=== PATIENT | male | born 1945 | race Caucasian/White ===

== ENCOUNTER 2016-09-10 19:30 | Inpatient (IN) | payer MEDICARE, MEDICAID ==
[~2016-09-10] VITALS: Ht 181.6 cm; Wt 70.5 kg
[2016-09-10] MEDS ORDERED: DUONEB INH ONE ×2 (20:47)
[2016-09-10] MEDS ORDERED: METHYLPRED SOD SUCC 125 MG/2 ML VIAL ONE (22:44)
[2016-09-10] MEDS ORDERED: TUSSIONEX SUSP UDC ONE (22:50)
[2016-09-10] MEDS ORDERED: SALINE FLUSH 10 ML FLUSH PRN (23:15)
[2016-09-10] MEDS: DUONEB INH SCH (23:15)
[2016-09-11] VITALS (11 sets, daily range): BP systolic 126–146; RESP 16–20; TEMP 97.4–98.3; Ht 181.6 cm; Wt 70.5 kg
[2016-09-11] MEDS: CEFTRIAXONE 1 GM in SODIUM CHLORIDE 0.9% 50 ML IV SCH ×2 (00:38→09:21)
[2016-09-11] MEDS: Carvedilol 6.25 MG TAB PO SCH ×3 (00:39→20:24)
[2016-09-11] MEDS: SODIUM CHLORIDE 0.9% FLUSH BAG 500 ML IV SCH (00:39)
[2016-09-11] MEDS: GABAPENTIN 600 MG TAB PO SCH ×4 (00:39→20:25)
[2016-09-11] MEDS: METHYLPRED SOD SUCC 40 MG VIAL IV SCH ×4 (06:19→23:17)
[2016-09-11] MEDS: DUONEB INH SCH ×4 (06:32→22:07)
[2016-09-11] MEDS: Furosemide 20 MG/2 ML VIAL IV SCH ×2 (09:20→16:46)
[2016-09-11] MEDS: SALINE FLUSH 10 ML FLUSH SCH ×2 (09:21→20:24)
[2016-09-11] MEDS: PAROXETINE HCL 10 MG TAB PO SCH (09:21)
[2016-09-11] MEDS: LORATADINE 10 MG TAB PO SCH (09:21)
[2016-09-11] MEDS: CLOPIDOGREL 75 MG TAB PO SCH (09:21)
[2016-09-11] MEDS: ARIPiprazole 5 MG TABLET PO SCH (09:22)
[2016-09-11] MEDS ORDERED: GLUCAGON 1 MG VIAL IM PRN (11:50)
[2016-09-11] MEDS ORDERED: DEXTROSE 50% SYRINGE 50 ML IV PRN (11:50)
[2016-09-11] MEDS ORDERED: MISSING DOSE XX ONE (16:10)
[2016-09-11] MEDS: Atorvastatin 40 MG TAB PO SCH (20:24)
[2016-09-12] VITALS (8 sets, daily range): BP systolic 122–148; RESP 18–20; TEMP 97.6–98.8
[2016-09-12] MEDS: METHYLPRED SOD SUCC 40 MG VIAL IV SCH ×4 (05:26→23:08)
[2016-09-12] MEDS: SODIUM CHLORIDE 0.9% FLUSH BAG 500 ML IV SCH (05:26)
[2016-09-12] MEDS: DUONEB INH SCH ×4 (07:27→22:42)
[2016-09-12] MEDS: SALINE FLUSH 10 ML FLUSH SCH ×2 (08:18→20:14)
[2016-09-12] MEDS: ARIPiprazole 5 MG TABLET PO SCH (08:19)
[2016-09-12] MEDS: CLOPIDOGREL 75 MG TAB PO SCH (08:19)
[2016-09-12] MEDS: GABAPENTIN 600 MG TAB PO SCH ×3 (08:19→20:15)
[2016-09-12] MEDS: PAROXETINE HCL 10 MG TAB PO SCH (08:19)
[2016-09-12] MEDS: CEFTRIAXONE 1 GM in SODIUM CHLORIDE 0.9% 50 ML IV SCH (08:19)
[2016-09-12] MEDS: LORATADINE 10 MG TAB PO SCH (08:19)
[2016-09-12] MEDS ORDERED: MISSING DOSE XX ONE ×2 (08:30→09:15)
[2016-09-12] MEDS: Furosemide 20 MG/2 ML VIAL IV SCH ×2 (09:57→17:13)
[2016-09-12] MEDS: METOPROLOL TART 25 MG TAB PO SCH ×2 (09:57→20:15)
[2016-09-12] MEDS: Atorvastatin 40 MG TAB PO SCH (20:15)
[2016-09-13 02:31] VITALS: BP_SYST 131; RESP 20; TEMP 97.5
[2016-09-13] MEDS: SODIUM CHLORIDE 0.9% FLUSH BAG 500 ML IV SCH (05:16)
[2016-09-13] MEDS: METHYLPRED SOD SUCC 40 MG VIAL IV SCH ×3 (05:16→17:03)
[2016-09-13 07:54] VITALS: BP_SYST 139; RESP 20; TEMP 98.2
[2016-09-13] MEDS: DUONEB INH SCH ×4 (08:06→23:19)
[2016-09-13] MEDS: SALINE FLUSH 10 ML FLUSH SCH ×2 (08:16→21:37)
[2016-09-13] MEDS: ARIPiprazole 5 MG TABLET PO SCH (08:17)
[2016-09-13] MEDS: METOPROLOL TART 25 MG TAB PO SCH ×2 (08:17→21:37)
[2016-09-13] MEDS: PAROXETINE HCL 10 MG TAB PO SCH (08:17)
[2016-09-13] MEDS: LORATADINE 10 MG TAB PO SCH (08:17)
[2016-09-13] MEDS: Furosemide 20 MG/2 ML VIAL IV SCH ×2 (08:17→16:22)
[2016-09-13] MEDS: CEFTRIAXONE 1 GM in SODIUM CHLORIDE 0.9% 50 ML IV SCH (08:17)
[2016-09-13] MEDS: GABAPENTIN 600 MG TAB PO SCH ×3 (08:17→21:37)
[2016-09-13] MEDS: CLOPIDOGREL 75 MG TAB PO SCH (08:18)
[2016-09-13 11:29] VITALS: BP_SYST 142; RESP 18; TEMP 97.7
[2016-09-13 19:29] VITALS: BP_SYST 150; RESP 20; TEMP 98.1
[2016-09-13] MEDS: Atorvastatin 40 MG TAB PO SCH (21:37)
[2016-09-13 23:15] VITALS: BP_SYST 130; RESP 18; TEMP 97.8
[2016-09-14] VITALS (7 sets, daily range): BP systolic 127–143; RESP 16–18; TEMP 97–98.2
[2016-09-14] MEDS: DUONEB INH SCH ×4 (06:30→22:55)
[2016-09-14] MEDS: METHYLPRED SOD SUCC 40 MG VIAL IV SCH ×2 (07:00)
[2016-09-14] MEDS: SODIUM CHLORIDE 0.9% FLUSH BAG 500 ML IV SCH (07:00)
[2016-09-14] MEDS: SALINE FLUSH 10 ML FLUSH SCH ×2 (08:44→21:15)
[2016-09-14] MEDS: ARIPiprazole 5 MG TABLET PO SCH (08:45)
[2016-09-14] MEDS: LORATADINE 10 MG TAB PO SCH (08:45)
[2016-09-14] MEDS: GABAPENTIN 600 MG TAB PO SCH ×3 (08:45→21:14)
[2016-09-14] MEDS: PAROXETINE HCL 10 MG TAB PO SCH (08:45)
[2016-09-14] MEDS: Furosemide 20 MG/2 ML VIAL IV SCH ×2 (08:45→18:04)
[2016-09-14] MEDS: CEFTRIAXONE 1 GM in SODIUM CHLORIDE 0.9% 50 ML IV SCH (08:45)
[2016-09-14] MEDS: CLOPIDOGREL 75 MG TAB PO SCH (08:45)
[2016-09-14] MEDS: METOPROLOL TART 25 MG TAB PO SCH ×2 (08:45→21:14)
[2016-09-14] MEDS: Atorvastatin 40 MG TAB PO SCH (21:14)
[2016-09-15] VITALS (9 sets, daily range): BP systolic 127–157; RESP 16–22; TEMP 97.8–98.4
[2016-09-15] MEDS: SODIUM CHLORIDE 0.9% FLUSH BAG 500 ML IV SCH (06:37)
[2016-09-15] MEDS: DUONEB INH SCH ×4 (06:59→22:32)
[2016-09-15] MEDS: Furosemide 20 MG/2 ML VIAL IV SCH ×2 (08:25→16:00)
[2016-09-15] MEDS: SALINE FLUSH 10 ML FLUSH SCH ×2 (08:26→22:14)
[2016-09-15] MEDS: CEFTRIAXONE 1 GM in SODIUM CHLORIDE 0.9% 50 ML IV SCH (08:26)
[2016-09-15] MEDS: LORATADINE 10 MG TAB PO SCH (08:26)
[2016-09-15] MEDS: METOPROLOL TART 25 MG TAB PO SCH ×2 (08:26→22:15)
[2016-09-15] MEDS: PAROXETINE HCL 10 MG TAB PO SCH (08:27)
[2016-09-15] MEDS: GABAPENTIN 600 MG TAB PO SCH ×3 (08:27→22:15)
[2016-09-15] MEDS: ARIPiprazole 5 MG TABLET PO SCH (09:22)
[2016-09-15] MEDS: CLOPIDOGREL 75 MG TAB PO SCH (09:22)
[2016-09-15] MEDS ORDERED: MAG CIT SOLN 300 ML PO ONE (15:10)
[2016-09-15] MEDS: Atorvastatin 40 MG TAB PO SCH (22:14)
[2016-09-16 03:25] VITALS: BP_SYST 146; RESP 18; TEMP 97.9
[2016-09-16] MEDS: SODIUM CHLORIDE 0.9% FLUSH BAG 500 ML IV SCH (06:09)
[2016-09-16] MEDS: DUONEB INH SCH ×4 (06:44→23:09)
[2016-09-16 08:32] VITALS: BP_SYST 132; RESP 20; TEMP 97.9
[2016-09-16] MEDS: Furosemide 20 MG/2 ML VIAL IV SCH ×2 (09:31→17:33)
[2016-09-16] MEDS: GABAPENTIN 600 MG TAB PO SCH ×3 (09:32→20:44)
[2016-09-16] MEDS: CLOPIDOGREL 75 MG TAB PO SCH (09:32)
[2016-09-16] MEDS: SALINE FLUSH 10 ML FLUSH SCH ×2 (09:32→20:42)
[2016-09-16] MEDS: PAROXETINE HCL 10 MG TAB PO SCH (09:32)
[2016-09-16] MEDS: CEFTRIAXONE 1 GM in SODIUM CHLORIDE 0.9% 50 ML IV SCH (09:32)
[2016-09-16] MEDS: ARIPiprazole 5 MG TABLET PO SCH (09:33)
[2016-09-16] MEDS: ESCITALOPRAM 10 MG TAB PO SCH (09:33)
[2016-09-16] MEDS: METOPROLOL TART 25 MG TAB PO SCH ×2 (09:33→20:44)
[2016-09-16] MEDS: LORATADINE 10 MG TAB PO SCH (09:33)
[2016-09-16 12:01] VITALS: BP_SYST 124; RESP 18; TEMP 98
[2016-09-16 15:55] VITALS: BP_SYST 127; RESP 18; TEMP 98.3
[2016-09-16] MEDS: Atorvastatin 40 MG TAB PO SCH (20:44)
[2016-09-16 20:54] VITALS: BP_SYST 136; RESP 18; TEMP 97.8
[2016-09-17 00:14] VITALS: BP_SYST 122; RESP 18; TEMP 97.8
[2016-09-17 05:16] VITALS: BP_SYST 132; RESP 20; TEMP 97.4
[2016-09-17] MEDS: SODIUM CHLORIDE 0.9% FLUSH BAG 500 ML IV SCH (06:41)
[2016-09-17] MEDS: DUONEB INH SCH ×4 (06:44→22:38)
[2016-09-17] MEDS: SALINE FLUSH 10 ML FLUSH SCH ×2 (07:47→19:39)
[2016-09-17 08:20] VITALS: BP_SYST 128; RESP 20; TEMP 96.6
[2016-09-17] MEDS: Furosemide 20 MG/2 ML VIAL IV SCH ×2 (08:55→16:41)
[2016-09-17] MEDS: CEFTRIAXONE 1 GM in SODIUM CHLORIDE 0.9% 50 ML IV SCH (08:55)
[2016-09-17] MEDS: GABAPENTIN 600 MG TAB PO SCH ×3 (08:56→20:17)
[2016-09-17] MEDS: ARIPiprazole 5 MG TABLET PO SCH (08:56)
[2016-09-17] MEDS: PAROXETINE HCL 10 MG TAB PO SCH (08:56)
[2016-09-17] MEDS: LORATADINE 10 MG TAB PO SCH (08:56)
[2016-09-17] MEDS: ESCITALOPRAM 10 MG TAB PO SCH (08:56)
[2016-09-17] MEDS: METOPROLOL TART 25 MG TAB PO SCH ×2 (08:56→20:17)
[2016-09-17] MEDS: CLOPIDOGREL 75 MG TAB PO SCH (08:56)
[2016-09-17 10:38] VITALS: BP_SYST 122; RESP 20; TEMP 97.5
[2016-09-17 16:37] VITALS: BP_SYST 122; RESP 16; TEMP 98.3
[2016-09-17 19:50] VITALS: BP_SYST 131; RESP 18; TEMP 98.4
[2016-09-17] MEDS ORDERED: MISSING DOSE XX ONE (20:00)
[2016-09-17] MEDS: Atorvastatin 40 MG TAB PO SCH (20:17)
[2016-09-18] VITALS (7 sets, daily range): BP systolic 113–131; RESP 16–20; TEMP 96–99.1
[2016-09-18] MEDS: SODIUM CHLORIDE 0.9% FLUSH BAG 500 ML IV SCH (05:42)
[2016-09-18] MEDS: DUONEB INH SCH ×5 (06:24→22:22)
[2016-09-18] MEDS ORDERED: MISSING DOSE XX ONE (08:35)
[2016-09-18] MEDS: SALINE FLUSH 10 ML FLUSH SCH ×2 (08:37→21:36)
[2016-09-18] MEDS: Furosemide 20 MG/2 ML VIAL IV SCH ×2 (08:37→16:32)
[2016-09-18] MEDS: ARIPiprazole 5 MG TABLET PO SCH (08:38)
[2016-09-18] MEDS: LORATADINE 10 MG TAB PO SCH (08:38)
[2016-09-18] MEDS: GABAPENTIN 600 MG TAB PO SCH ×3 (08:38→21:37)
[2016-09-18] MEDS: CLOPIDOGREL 75 MG TAB PO SCH (08:38)
[2016-09-18] MEDS: PAROXETINE HCL 10 MG TAB PO SCH (08:38)
[2016-09-18] MEDS: ESCITALOPRAM 10 MG TAB PO SCH (08:38)
[2016-09-18] MEDS: METOPROLOL TART 25 MG TAB PO SCH ×2 (10:15→21:53)
[2016-09-18] MEDS: Atorvastatin 40 MG TAB PO SCH (21:37)
[2016-09-19 03:05] VITALS: BP_SYST 137; RESP 16; TEMP 98.3
[2016-09-19] MEDS: SODIUM CHLORIDE 0.9% FLUSH BAG 500 ML IV SCH (06:00)
[2016-09-19] MEDS: DUONEB INH SCH ×4 (07:05→22:18)
[2016-09-19 07:25] VITALS: BP_SYST 133; RESP 18; TEMP 97.6
[2016-09-19] MEDS: CLOPIDOGREL 75 MG TAB PO SCH (08:09)
[2016-09-19] MEDS: GABAPENTIN 600 MG TAB PO SCH ×3 (08:09→20:50)
[2016-09-19] MEDS: PAROXETINE HCL 10 MG TAB PO SCH (08:09)
[2016-09-19] MEDS: SALINE FLUSH 10 ML FLUSH SCH ×2 (08:09→20:49)
[2016-09-19] MEDS: METOPROLOL TART 25 MG TAB PO SCH ×2 (08:10→20:50)
[2016-09-19] MEDS: ESCITALOPRAM 10 MG TAB PO SCH (08:10)
[2016-09-19] MEDS: LORATADINE 10 MG TAB PO SCH (08:10)
[2016-09-19] MEDS: Furosemide 20 MG/2 ML VIAL IV SCH ×2 (08:11→16:06)
[2016-09-19] MEDS: ARIPiprazole 5 MG TABLET PO SCH (08:11)
[2016-09-19 11:17] VITALS: BP_SYST 117; RESP 18; TEMP 97.5
[2016-09-19 15:20] VITALS: BP_SYST 137; RESP 18; TEMP 97.4
[2016-09-19 19:56] VITALS: BP_SYST 111; RESP 16; TEMP 97.2
[2016-09-19] MEDS: Atorvastatin 40 MG TAB PO SCH (20:50)
[2016-09-19 23:17] VITALS: BP_SYST 135; RESP 18; TEMP 98.3
[2016-09-20] VITALS (7 sets, daily range): BP systolic 127–133; RESP 16–20; TEMP 97.8–98.5
[2016-09-20] MEDS: SODIUM CHLORIDE 0.9% FLUSH BAG 500 ML IV SCH (06:00)
[2016-09-20] MEDS: DUONEB INH SCH ×2 (07:46→14:33)
[2016-09-20] MEDS: LORATADINE 10 MG TAB PO SCH (08:26)
[2016-09-20] MEDS: CLOPIDOGREL 75 MG TAB PO SCH (08:26)
[2016-09-20] MEDS: ESCITALOPRAM 10 MG TAB PO SCH (08:26)
[2016-09-20] MEDS: ARIPiprazole 5 MG TABLET PO SCH (08:26)
[2016-09-20] MEDS: Furosemide 20 MG/2 ML VIAL IV SCH ×2 (08:26→17:00)
[2016-09-20] MEDS: PAROXETINE HCL 10 MG TAB PO SCH (08:26)
[2016-09-20] MEDS: METOPROLOL TART 25 MG TAB PO SCH (08:26)
[2016-09-20] MEDS: GABAPENTIN 600 MG TAB PO SCH ×2 (08:26→16:21)
[2016-09-20] MEDS: SALINE FLUSH 10 ML FLUSH SCH (08:26)
[2016-09-20] MEDS ORDERED: MAG CIT SOLN 300 ML PO ONE (13:50)
== END 2016-09-20 18:10 | DRG 191 ==
LOC: ENRESERVDT → ENRESERVTM → ENRESERV → ER 19:30 → ENPENDDIS 23:15 → EMR 23:15 → PCU 09-11 00:05 → 3NT 09-13 11:03
PROVIDERS: ADMIT Internal Medicine; ATTEND Internal Medicine
DX: J44.1 Chronic obstructive pulmonary disease with (acute) exacerbation (principal); I50.32 Chronic diastolic (congestive) heart failure; I47.2 Ventricular tachycardia; E11.40 Type 2 diabetes mellitus with diabetic neuropathy, unspecified; Z79.84 Long term (current) use of oral hypoglycemic drugs; Z79.02 Long term (current) use of antithrombotics/antiplatelets; F41.9 Anxiety disorder, unspecified; F32.9 Major depressive disorder, single episode, unspecified; Z99.81 Dependence on supplemental oxygen
CPT/HCPCS: 36415; 36600; 71010; 80048; 80053; 82553; 82803; 82947; 83735; 83880; 84132; 84439; 84443; 84484; 85025; 93005; 94640; 94799; 96374